=== PATIENT | female | born 1950 ===

== ENCOUNTER 2023-01-23 10:20 | Emergency (ER) | payer OTHER ==
[~2023-01-23] VITALS: Ht 152.4 cm; Wt 60.3 kg
[~2023-01-23 10:20] MED LIST: AZATHIOPRINE50 MG; MEDROL4 MG; OMEPRAZOLE40 MG; OSEL75CA PO; TUSSI PRES-B L120 M1 PO; ZANTAC300 MG PO
[2023-01-23] MEDS ORDERED: PEPCID AC20 MG PO (10:44)
== END 2023-01-23 11:43 | disposition home or self-care (01) ==
LOC: ER 10:21
DX: J32.9 Chronic sinusitis, unspecified (principal); R09.81 Nasal congestion; Z88.6 Allergy status to analgesic agent; Z88.9 Allergy status to unspecified drugs, medicaments and biological substances; Z91.013 Allergy to seafood; Z91.018 Allergy to other foods

== ENCOUNTER 2023-10-24 07:36 | Day surgery (SDC) | payer OTHER ==
[2023-10-03 15:26] VITALS: BP 130/80
[~2023-10-24] VITALS: Ht 152.4 cm; Wt 60.3 kg
[~2023-10-24 07:36] MED LIST changes: +EMGALITY P120 MG/1 M; +PEPCID AC20 MG PO
[2023-10-24] MEDS ORDERED: DIBUCAINE 30 GM TUBE ONE (12:01)
[2023-10-24] MEDS ORDERED: BUPIVACAINE HCL/Mpf 0.5% 10ML VIAL ONE (12:01)
[2023-10-24] MEDS ORDERED: POVIDONE-IODINE 118 ML BOTT TOP ONE (12:01)
[2023-10-24] MEDS ORDERED: HEMOSTATIC MATRIX 1 KIT KIT TOP ONE (12:02)
[2023-10-24] MEDS ORDERED: BUPIVACAINE LIPOSOME/PF 266 MG/20 ML VIAL IJ ONE (12:02)
[2023-10-24] MEDS ORDERED: LIDOCAINE HCL 1%/EPINEPHRINE 20ML VIAL IJ ONE (12:02)
[2023-10-24] MEDS ORDERED: METRONIDAZOLE/SODIUM CHLORIDE 500 MG/100 ML PIGGYBACK IV ONE (12:07)
[2023-10-24] MEDS ORDERED: CEFTRIAXONE SODIUM 2,000 MG VIAL ONE (12:07)
[2023-10-24] MEDS ORDERED: BUPIVACAINE HCL/MPF 0.5% 30ML VIAL ONE (12:30)
[2023-10-24] MEDS ORDERED: CELECOXIB200 MG PO (16:31)
[2023-10-24] MEDS ORDERED: PERCOCET 5-3251 EACH PO (16:31)
== END 2023-10-24 18:00 | disposition home or self-care (01) ==
LOC: CIR.AMB 07:36
PROVIDERS: ATTEND Surgery
DX: K64.1 Second degree hemorrhoids (principal); K64.4 Residual hemorrhoidal skin tags; K62.5 Hemorrhage of anus and rectum; Z88.6 Allergy status to analgesic agent; Z91.02 Food additives allergy status; F41.8 Other specified anxiety disorders; I49.9 Cardiac arrhythmia, unspecified